=== PATIENT | female | born 1965 | race Caucasian/White ===

== ENCOUNTER → 2020-01-11 09:31 | Outpatient (BNVA) | payer MEDICARE, MEDICAID, SELFPAY | PROVIDERS: Family Provider Nurse Practitioner Family; PCP Nurse Practitioner; Visit Provider Nurse Practitioner Family | DX: E55.9 Vitamin D deficiency, unspecified (principal); E03.9 Hypothyroidism, unspecified; Z79.899 Other long term (current) drug therapy; E78.2 Mixed hyperlipidemia | CPT/HCPCS: 80053; 80061; 82306; 83036; 84443; 85025 ==

== ENCOUNTER → 2020-11-01 10:59 | Outpatient (BNVA) | payer MEDICARE, MEDICAID, SELFPAY | PROVIDERS: Family Provider Nurse Practitioner Family; PCP Nurse Practitioner Family; Visit Provider Nurse Practitioner Family | DX: E03.9 Hypothyroidism, unspecified (principal); E78.2 Mixed hyperlipidemia; E55.9 Vitamin D deficiency, unspecified; Z79.899 Other long term (current) drug therapy | CPT/HCPCS: 80053; 80061; 81003; 82306; 83036; 84443; 85025 ==

== ENCOUNTER → 2021-03-28 11:36 | Outpatient (BNVA) | payer MEDICARE, MEDICAID, SELFPAY | PROVIDERS: Family Provider Nurse Practitioner Family; PCP Nurse Practitioner Family; Visit Provider Nurse Practitioner Family | DX: R41.82 Altered mental status, unspecified (principal); N39.0 Urinary tract infection, site not specified | CPT/HCPCS: 81003; 82607; 84439; 84443; 87077; 87086; 87184 ==

== ENCOUNTER → 2021-04-04 10:51 | Outpatient (BNVA) | payer MEDICARE, MEDICAID, SELFPAY | PROVIDERS: Family Provider Nurse Practitioner Family; PCP Nurse Practitioner Family; Visit Provider Nurse Practitioner Family | DX: N39.0 Urinary tract infection, site not specified (principal); A49.9 Bacterial infection, unspecified | CPT/HCPCS: 81003 ==

== ENCOUNTER 2021-06-05 15:09 | Outpatient (CLI) | payer MEDICARE, MEDICAID, SELFPAY ==
--- NOTE | 2021-06-05 15:30 | CT_ITS ---
WS: [id number] CT HEAD TECHNIQUE: Noncontrast CT of the head obtained from the skullbase to the vertex. CLINICAL INFORMATION: R41.82 - Altered mental status, unspecified COMPARISON: None. DLP: 915.[address] scans at [facility] use at least one of these dose optimization techniques: automated e xposure control; mA and/or kV adjustment per patient size (includes targeted exams where dose is matc hed to clinical indication); or iterative reconstruction. FINDINGS: No evidence of intracranial hemorrhage or mass effect. Ventricular system and basal cisterns are steele nt. Moderate small vessel changes with moderate parenchymal volume loss. 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 Intracranial vascular calcificatio n. Benign basal ganglia calcifications. No extra-axial fluid collections. No evidence of mass or mass effect. Hypoplastic frontal sinuses. Paranasal sinuses are otherwise well aerated. Hypoplastic mastoid air ce lls bilaterally. Middle ears appear well aerated.. CT/CT head wo con* [id number] IMPRESSION: 1. No evidence of intracranial hemorrhage or mass effect. 2. Moderate small vessel changes with moderate parenchymal volume loss. 3. Chronic encephalomalacia in the RIGHT parasagittal occipital lobe likely du e to prior infarct. 4. Intracranial vascular calcification. 5. No other acute findings.
== END 2021-06-05 15:10 | disposition home or self-care (01) ==
LOC: RAD 15:16
PROVIDERS: PCP Nurse Practitioner Family; Visit Provider Nurse Practitioner Family
DX: R41.82 Altered mental status, unspecified (principal); G93.89 Other specified disorders of brain
CPT/HCPCS: 70450

== ENCOUNTER → 2021-06-27 12:22 | Outpatient (BNVA) | payer MEDICARE, MEDICAID, SELFPAY | PROVIDERS: PCP Nurse Practitioner Family; Visit Provider Specialist | DX: G30.9 Alzheimer's disease, unspecified (principal); F02.80 Dementia in other diseases classified elsewhere, unspecified severity, without behavioral disturbance, psychotic disturbance, mood disturbance, and anxiety; Q90.9 Down syndrome, unspecified | CPT/HCPCS: 99204 ==

== ENCOUNTER → 2021-10-30 13:02 | Outpatient (BNVA) | payer MEDICARE, MEDICAID, SELFPAY | PROVIDERS: PCP Nurse Practitioner Family; Visit Provider Specialist | DX: G30.9 Alzheimer's disease, unspecified (principal); F02.80 Dementia in other diseases classified elsewhere, unspecified severity, without behavioral disturbance, psychotic disturbance, mood disturbance, and anxiety; Q90.9 Down syndrome, unspecified; G47.00 Insomnia, unspecified | CPT/HCPCS: 99213; 99214 ==

== ENCOUNTER → 2021-12-12 11:39 | Outpatient (BNVA) | payer MEDICARE, MEDICAID, SELFPAY | PROVIDERS: PCP Nurse Practitioner; Visit Provider Nurse Practitioner | DX: E03.9 Hypothyroidism, unspecified (principal); Z79.899 Other long term (current) drug therapy; F02.80 Dementia in other diseases classified elsewhere, unspecified severity, without behavioral disturbance, psychotic disturbance, mood disturbance, and anxiety; G30.9 Alzheimer's disease, unspecified; E78.2 Mixed hyperlipidemia; G47.30 Sleep apnea, unspecified; L40.9 Psoriasis, unspecified | CPT/HCPCS: 80053; 80061; 84443; 85025 ==

== ENCOUNTER → 2022-02-28 13:10 | Outpatient (BNVA) | payer MEDICARE, MEDICAID, SELFPAY | PROVIDERS: PCP Family Medicine; Visit Provider Specialist | DX: G30.9 Alzheimer's disease, unspecified (principal); Q90.9 Down syndrome, unspecified; F32.A Depression, unspecified; F02.A0 Dementia in other diseases classified elsewhere, mild, without behavioral disturbance, psychotic disturbance, mood disturbance, and anxiety; R42 Dizziness and giddiness | CPT/HCPCS: 99215 ==

== ENCOUNTER → 2022-09-12 12:17 | Outpatient (BNVA) | payer MEDICARE, MEDICAID, SELFPAY | PROVIDERS: PCP Family Medicine; Visit Provider Specialist | DX: G30.9 Alzheimer's disease, unspecified (principal); F02.80 Dementia in other diseases classified elsewhere, unspecified severity, without behavioral disturbance, psychotic disturbance, mood disturbance, and anxiety; Q90.9 Down syndrome, unspecified; G45.9 Transient cerebral ischemic attack, unspecified; F32.A Depression, unspecified | CPT/HCPCS: 99213 ==

== ENCOUNTER → 2023-07-30 09:59 | Outpatient (BNVA) | payer MEDICARE, MEDICAID, SELFPAY | PROVIDERS: PCP Family Medicine; Visit Provider Nurse Practitioner Family | DX: E03.9 Hypothyroidism, unspecified (principal); M17.0 Bilateral primary osteoarthritis of knee; L40.9 Psoriasis, unspecified; E78.2 Mixed hyperlipidemia; Q90.9 Down syndrome, unspecified; E55.9 Vitamin D deficiency, unspecified; N39.0 Urinary tract infection, site not specified; Z79.899 Other long term (current) drug therapy; E78.5 Hyperlipidemia, unspecified; R31.9 Hematuria, unspecified; A49.9 Bacterial infection, unspecified | CPT/HCPCS: 80053; 80061; 82306; 83036; 84443; 85025; 85651; 86140 ==

== ENCOUNTER → 2023-09-10 12:01 | Outpatient (BNVA) | payer MEDICARE, MEDICAID, SELFPAY | PROVIDERS: PCP Family Medicine; Visit Provider Specialist | DX: R41.3 Other amnesia (principal); G30.9 Alzheimer's disease, unspecified; F02.80 Dementia in other diseases classified elsewhere, unspecified severity, without behavioral disturbance, psychotic disturbance, mood disturbance, and anxiety; Q90.9 Down syndrome, unspecified; G45.9 Transient cerebral ischemic attack, unspecified; F32.A Depression, unspecified | CPT/HCPCS: 99213 ==

== ENCOUNTER → 2024-03-23 10:26 | Outpatient (BNVA) | payer MEDICARE, MEDICAID, SELFPAY | PROVIDERS: PCP Nurse Practitioner Family; Visit Provider Nurse Practitioner Family | DX: I95.9 Hypotension, unspecified (principal); R53.1 Weakness; E78.2 Mixed hyperlipidemia; Q90.9 Down syndrome, unspecified; E03.9 Hypothyroidism, unspecified; E55.9 Vitamin D deficiency, unspecified; G45.9 Transient cerebral ischemic attack, unspecified; D51.8 Other vitamin B12 deficiency anemias; G47.30 Sleep apnea, unspecified; L40.9 Psoriasis, unspecified; Z79.899 Other long term (current) drug therapy | CPT/HCPCS: 80053; 80061; 81003; 82306; 82607; 83036; 83921; 84443; 85025 ==